=== PATIENT | male | born 1935 | race Caucasian/White ===

== ENCOUNTER 2021-12-05 15:59 | Inpatient (IN) | payer MEDICARE, BC ==
[2021-12-05] MEDS ORDERED: Aspirin 81 mg Enteric Coated Tablet PO SCH (16:15)
[2021-12-05 16:41] LABS: #Basophils 0.1 thou/uL (0.0-0.2); #Eosinphils 0.1 thou/uL (0.0-0.7); #Lymphocytes 1.5 thou/uL (1.20-3.40); #Monocytes 1.5 thou/uL (0.11-0.59); #Neutrophils 8.4 thou/uL (1.40-6.50); %Basophils 0.6 % (0.0-1.0); %Eosinophils 1.1 % (0.0-10.0); %Lymphocytes 12.7 % (21.0-51.0); %Monocytes 12.9 % (0.0-10.0); %Neutrophils 72.8 % (42.0-75.0); Mean Corpuscular HGB CONC 30.9 g/dL (32.0-36.0); Mean Corpuscular Hemoglobin 29.9 pg (27.0-31.0); Mean Corpuscular Volume 96.8 fL (78.0-98.0); Mean Platelet Volume 5.9 fL (7.4-10.4); Platelet Count 277 thou/uL (130-400); RBC Distribution Width 15.5 % (11.5-14.5); Red Blood Cell (RBC) Count 4.35 mill/uL (4.70-6.10); White Blood Cell (WBC) Count 11.5 thou/uL (4.8-10.8)
[2021-12-05 17:02] LABS: Anion Gap 14 mmol/L (10-20); BUN (Urea Nitrogen) 25 mg/dL (8.4-25.7); Calc. Creatinine Clearance 0 mL/min (70-130); Calcium 9.5 mg/dL (7.8-10.44); Carbon Dioxide 24 mmol/L (23-31); Chloride 93 mmol/L (98-107); Glucose 126 mg/dL (83-110); Potassium 4.4 mmol/L (3.5-5.1); Sodium 127 mmol/L (136-145)
[2021-12-05] MEDS: Amlodipine 10 MG TAB PO SCH (20:49)
[2021-12-05] MEDS: Simvastatin 10 MG TAB PO SCH (20:49)
[2021-12-05] MEDS: Fish Oil 1,000 MG CAP PO SCH (20:49)
[2021-12-05] MEDS: HYDROcodone/Acetaminophen 5/325 mg Tablet PO PRN (23:35)
[2021-12-06 04:34] LABS: #Basophils 0.1 thou/uL (0.0-0.2); #Eosinphils 0.1 thou/uL (0.0-0.7); #Lymphocytes 1.6 thou/uL (1.20-3.40); #Monocytes 1.1 thou/uL (0.11-0.59); #Neutrophils 6.5 thou/uL (1.40-6.50); %Basophils 0.5 % (0.0-1.0); %Eosinophils 1.4 % (0.0-10.0); %Lymphocytes 17.2 % (21.0-51.0); %Monocytes 12.1 % (0.0-10.0); %Neutrophils 68.8 % (42.0-75.0); Hemoglobin 12.1 g/dL (14.0-18.0); Mean Corpuscular Hemoglobin 29.8 pg (27.0-31.0); Mean Corpuscular Volume 96.1 fL (78.0-98.0); Platelet Count 285 thou/uL (130-400); RBC Distribution Width 15.5 % (11.5-14.5); Red Blood Cell (RBC) Count 4.07 mill/uL (4.70-6.10); White Blood Cell (WBC) Count 9.4 thou/uL (4.8-10.8)
[2021-12-06 04:52] LABS: Anion Gap 11 mmol/L (10-20); BUN (Urea Nitrogen) 24 mg/dL (8.4-25.7); Calc. Creatinine Clearance 0 mL/min (70-130); Calcium 9.1 mg/dL (7.8-10.44); Carbon Dioxide 28 mmol/L (23-31); Chloride 94 mmol/L (98-107); Glucose 107 mg/dL (83-110); Potassium 4.2 mmol/L (3.5-5.1); Sodium 129 mmol/L (136-145)
[2021-12-06] MEDS: CEFAZOLIN 2 GM in Sodium Chloride 0.9% 100 ML IVPB SCH ×3 (05:26→22:23)
[2021-12-06] MEDS ORDERED: Protamine Sulfate 50 MG/5 ML VIAL ONE (06:33)
[2021-12-06] MEDS ORDERED: Heparin 5,000 UNITS/ML VIAL ONE (06:33)
[2021-12-06] MEDS ORDERED: Bupivacaine PF 0.5% 30 ML VIAL ONE (06:34)
[2021-12-06] MEDS ORDERED: EPINEPHrine 1 MG/ML AMP ONE (06:34)
[2021-12-06] MEDS ORDERED: CEFAZOLIN 1 GM VIAL SLOW IVP SCH (07:00)
[2021-12-06] MEDS ORDERED: CEFAZOLIN 2 GM VIAL ONE (07:10)
[2021-12-06] MEDS ORDERED: Sodium Chloride 0.9% 0 ML ONE (07:11)
[2021-12-06] MEDS ORDERED: fentaNYL Citrate/PF 100 MCG/2 ML SYRINGE ONE (07:28)
[2021-12-06] MEDS ORDERED: Ketamine 50 MG/ML (10ML VIAL) ONE (07:29)
[2021-12-06] MEDS ORDERED: PROPOFOL 200 MG/20 ML VIAL ONE (07:46)
[2021-12-06] MEDS ORDERED: ePHEDrine 50 MG/ML VIAL ONE (07:46)
[2021-12-06] MEDS ORDERED: Rocuronium Bromide 10 MG/ML (10ML VIAL) ONE (07:46)
[2021-12-06] MEDS ORDERED: Glycopyrrolate 0.2 MG/ML 5 ML SYRINGE ONE (07:46)
[2021-12-06] MEDS ORDERED: PHENYLEPHRINE-NS 100 MCG/ML 10 ML SYRINGE ONE (07:46)
[2021-12-06] MEDS ORDERED: Ondansetron PF 4 MG/2 ML Vial ONE (07:46)
[2021-12-06] MEDS ORDERED: Lidocaine 1% PF 5 ML VIAL ONE (07:46)
[2021-12-06] MEDS ORDERED: Aspirin 81 mg Enteric Coated Tablet PO SCH (09:00)
[2021-12-06 09:27] VITALS: BMI 42.2
[2021-12-06 11:46] LABS: SARS-CoV-2 PCR by NAA Not Detected (NotDetected)
[2021-12-06] MEDS ORDERED: Fentanyl 100 MCG/2 ML VIAL ONE (11:56)
[2021-12-06] MEDS: Losartan 25 MG TAB PO SCH (14:31)
[2021-12-06] MEDS: Amiodarone 200 MG TAB PO SCH (14:31)
[2021-12-06] MEDS: Aspirin 325 MG TAB PO SCH (14:32)
[2021-12-06] MEDS: Empagliflozin 10 MG TAB PO SCH (14:32)
[2021-12-06] MEDS: Stress 600 With Zinc 1 TAB PO SCH (14:33)
[2021-12-06] MEDS: HYDROcodone/Acetaminophen 5/325 mg Tablet PO PRN (14:47)
[2021-12-06] MEDS ORDERED: Chloraseptic Spray 180 ml Bottle PO PRN (15:26)
[2021-12-06] MEDS ORDERED: Furosemide 20 MG TAB PO SCH ×2 (15:45→18:00)
[2021-12-06] MEDS ORDERED: Dextrose 50% Abboject 50 ML SYRINGE SLOW IVP PRN (16:14)
[2021-12-06] MEDS ORDERED: Dextrose 5% in Water 1,000 ML IV PRN (16:14)
[2021-12-06] MEDS ORDERED: HumaLOG 300 UNITS/3 ML VIAL SC PRN ×2 (16:14)
[2021-12-06] MEDS ORDERED: Ketorolac Tromethamine 30 MG/ML VIAL IVP SCH (17:21)
[2021-12-06] MEDS ORDERED: Lactated Ringer's 1,000 ML IV SCH (18:00)
[2021-12-06] MEDS: Enoxaparin Sodium 40 MG/0.4 ML SYRINGE SC SCH (20:10)
[2021-12-06] MEDS: Fish Oil 1,000 MG CAP PO SCH (20:12)
[2021-12-06] MEDS: Ferrous Sulfate 325 MG TAB PO SCH (20:12)
[2021-12-06] MEDS: Simvastatin 10 MG TAB PO SCH (20:12)
[2021-12-06] MEDS: Amlodipine 10 MG TAB PO SCH (20:12)
[2021-12-07] MEDS: Ondansetron PF 4 MG/2 ML Vial IVP PRN ×2 (02:03→09:07)
[2021-12-07] MEDS: Calcium Carbonate 500 MG ChewTAB PO PRN ×2 (03:36→23:20)
[2021-12-07 04:48] LABS: #Eosinphils 0.3 thou/uL (0.0-0.7); #Lymphocytes 1.2 thou/uL (1.20-3.40); #Monocytes 0.9 thou/uL (0.11-0.59); #Neutrophils 7.2 thou/uL (1.40-6.50); %Eosinophils 2.9 % (0.0-10.0); %Lymphocytes 12.5 % (21.0-51.0); %Monocytes 9.6 % (0.0-10.0); Mean Corpuscular HGB CONC 30.8 g/dL (32.0-36.0); Mean Corpuscular Hemoglobin 29.7 pg (27.0-31.0); Mean Corpuscular Volume 96.3 fL (78.0-98.0); Mean Platelet Volume 5.9 fL (7.4-10.4); Platelet Count 306 thou/uL (130-400); RBC Distribution Width 15.6 % (11.5-14.5); Red Blood Cell (RBC) Count 4.05 mill/uL (4.70-6.10); White Blood Cell (WBC) Count 9.6 thou/uL (4.8-10.8)
[2021-12-07 05:10] LABS: Anion Gap 12 mmol/L (10-20); BUN (Urea Nitrogen) 24 mg/dL (8.4-25.7); Calc. Creatinine Clearance 90 mL/min (70-130); Calcium 8.8 mg/dL (7.8-10.44); Carbon Dioxide 26 mmol/L (23-31); Chloride 93 mmol/L (98-107); Glucose 108 mg/dL (83-110); Potassium 4.3 mmol/L (3.5-5.1); Sodium 127 mmol/L (136-145)
[2021-12-07] MEDS: CEFAZOLIN 2 GM in Sodium Chloride 0.9% 100 ML IVPB SCH ×3 (05:17→21:23)
[2021-12-07] MEDS: HYDROcodone/Acetaminophen 5/325 mg Tablet PO PRN (06:35)
[2021-12-07] MEDS ORDERED: Milk Of Magnesia 30 ML UDCUP PO PRN (08:07)
[2021-12-07] MEDS: Mag-Al 1200 mg/1200 mg/30 ML UDCUP PO PRN (08:33)
[2021-12-07] MEDS: Polyethylene Glycol 3350 17 GM Packet PO SCH (08:34)
[2021-12-07] MEDS ORDERED: Pantoprazole 40 MG GRANULES PACKET PO SCH (09:00)
[2021-12-07] MEDS ORDERED: Lidocaine 2% Viscous Solution 20 ML, Aluminum & Magnesium Hydroxide 30 ML, Donnatal Eli... SSW SCH (11:00)
[2021-12-07] MEDS ORDERED: Mineral Oil ENEMA PR SCH (11:15)
[2021-12-07] MEDS: Stress 600 With Zinc 1 TAB PO SCH (12:18)
[2021-12-07] MEDS: Empagliflozin 10 MG TAB PO SCH (12:19)
[2021-12-07] MEDS: Amiodarone 200 MG TAB PO SCH (12:20)
[2021-12-07] MEDS: Spironolactone 25 MG TAB PO SCH (12:20)
[2021-12-07] MEDS: Losartan 25 MG TAB PO SCH (12:20)
[2021-12-07] MEDS: Aspirin 325 MG TAB PO SCH (12:20)
[2021-12-07] MEDS: Simvastatin 10 MG TAB PO SCH (20:40)
[2021-12-07] MEDS: Fish Oil 1,000 MG CAP PO SCH (20:40)
[2021-12-07] MEDS: Enoxaparin Sodium 40 MG/0.4 ML SYRINGE SC SCH (20:40)
[2021-12-07] MEDS: Ferrous Sulfate 325 MG TAB PO SCH (20:40)
[2021-12-08 04:29] LABS: #Eosinphils 0.1 thou/uL (0.0-0.7); #Lymphocytes 1.5 thou/uL (1.20-3.40); #Monocytes 1.1 thou/uL (0.11-0.59); #Neutrophils 6.5 thou/uL (1.40-6.50); %Basophils 0.2 % (0.0-1.0); %Eosinophils 1.4 % (0.0-10.0); %Lymphocytes 16.4 % (21.0-51.0); %Monocytes 11.9 % (0.0-10.0); %Neutrophils 70.2 % (42.0-75.0); Hemoglobin 11.1 g/dL (14.0-18.0); Mean Corpuscular HGB CONC 31.6 g/dL (32.0-36.0); Mean Corpuscular Hemoglobin 30.1 pg (27.0-31.0); Mean Corpuscular Volume 95.2 fL (78.0-98.0); Mean Platelet Volume 5.6 fL (7.4-10.4); Platelet Count 312 thou/uL (130-400); RBC Distribution Width 15.7 % (11.5-14.5); Red Blood Cell (RBC) Count 3.67 mill/uL (4.70-6.10); White Blood Cell (WBC) Count 9.3 thou/uL (4.8-10.8)
[2021-12-08 04:56] LABS: Anion Gap 10 mmol/L (10-20); BUN (Urea Nitrogen) 22 mg/dL (8.4-25.7); Calc. Creatinine Clearance 86 mL/min (70-130); Calcium 8.4 mg/dL (7.8-10.44); Carbon Dioxide 28 mmol/L (23-31); Chloride 94 mmol/L (98-107); Glucose 109 mg/dL (83-110); Potassium 4.3 mmol/L (3.5-5.1); Sodium 128 mmol/L (136-145)
[2021-12-08] MEDS: CEFAZOLIN 2 GM in Sodium Chloride 0.9% 100 ML IVPB SCH ×3 (05:50→21:55)
[2021-12-08] MEDS ORDERED: Furosemide 20 MG TAB PO SCH (09:00)
[2021-12-08] MEDS: Polyethylene Glycol 3350 17 GM Packet PO SCH (09:22)
[2021-12-08] MEDS: Losartan 25 MG TAB PO SCH (09:22)
[2021-12-08] MEDS: Aspirin 325 MG TAB PO SCH (09:22)
[2021-12-08] MEDS: Stress 600 With Zinc 1 TAB PO SCH (09:22)
[2021-12-08] MEDS: Amiodarone 200 MG TAB PO SCH (09:22)
[2021-12-08] MEDS: Empagliflozin 10 MG TAB PO SCH (09:23)
[2021-12-08] MEDS: Mag-Al 1200 mg/1200 mg/30 ML UDCUP PO PRN (10:14)
[2021-12-08] MEDS: Ondansetron PF 4 MG/2 ML Vial IVP PRN ×2 (10:14→17:14)
[2021-12-08] MEDS ORDERED: Fleet Enema 133 ML BOT PR SCH (12:00)
[2021-12-08] MEDS: Enoxaparin Sodium 40 MG/0.4 ML SYRINGE SC SCH (21:54)
[2021-12-08] MEDS: Ferrous Sulfate 325 MG TAB PO SCH (21:55)
[2021-12-08] MEDS: Simvastatin 10 MG TAB PO SCH (21:55)
[2021-12-08] MEDS: Fish Oil 1,000 MG CAP PO SCH (21:55)
[2021-12-08] MEDS: HYDROcodone/Acetaminophen 5/325 mg Tablet PO PRN (21:58)
[2021-12-08] MEDS ORDERED: OLANZapine ODT 5 MG TAB ONE (22:16)
[2021-12-09 04:59] LABS: #Eosinphils 0.2 thou/uL (0.0-0.7); #Lymphocytes 1.6 thou/uL (1.20-3.40); #Monocytes 1.1 thou/uL (0.11-0.59); #Neutrophils 5.6 thou/uL (1.40-6.50); %Basophils 0.2 % (0.0-1.0); %Eosinophils 2.8 % (0.0-10.0); %Lymphocytes 18.9 % (21.0-51.0); %Monocytes 12.5 % (0.0-10.0); %Neutrophils 65.6 % (42.0-75.0); Hemoglobin 11.2 g/dL (14.0-18.0); Mean Corpuscular HGB CONC 31.6 g/dL (32.0-36.0); Mean Corpuscular Hemoglobin 30.2 pg (27.0-31.0); Mean Corpuscular Volume 95.5 fL (78.0-98.0); Platelet Count 340 thou/uL (130-400); RBC Distribution Width 15.7 % (11.5-14.5); Red Blood Cell (RBC) Count 3.73 mill/uL (4.70-6.10); White Blood Cell (WBC) Count 8.5 thou/uL (4.8-10.8)
[2021-12-09] MEDS: Mag-Al 1200 mg/1200 mg/30 ML UDCUP PO PRN (05:28)
[2021-12-09] MEDS: CEFAZOLIN 2 GM in Sodium Chloride 0.9% 100 ML IVPB SCH ×3 (05:31→20:17)
[2021-12-09 05:41] LABS: Anion Gap 11 mmol/L (10-20); BUN (Urea Nitrogen) 22 mg/dL (8.4-25.7); Calc. Creatinine Clearance 78 mL/min (70-130); Carbon Dioxide 27 mmol/L (23-31); Chloride 94 mmol/L (98-107); Glucose 99 mg/dL (83-110); Potassium 4.3 mmol/L (3.5-5.1); Sodium 128 mmol/L (136-145)
[2021-12-09] MEDS: Ondansetron PF 4 MG/2 ML Vial IVP PRN (07:32)
[2021-12-09] MEDS: Polyethylene Glycol 3350 17 GM Packet PO SCH ×2 (09:38→21:38)
[2021-12-09] MEDS: Aspirin 325 MG TAB PO SCH (09:45)
[2021-12-09] MEDS: Losartan 25 MG TAB PO SCH (09:45)
[2021-12-09] MEDS: Empagliflozin 10 MG TAB PO SCH (09:45)
[2021-12-09] MEDS: Amiodarone 200 MG TAB PO SCH (09:45)
[2021-12-09] MEDS: Stress 600 With Zinc 1 TAB PO SCH (09:46)
[2021-12-09] MEDS: Spironolactone 25 MG TAB PO SCH (09:47)
[2021-12-09] MEDS: Sodium Chloride 0.9% 1,000 ML IV SCH ×2 (10:18→21:38)
[2021-12-09] MEDS ORDERED: Bicitra 30 ML UDCUP PO SCH (11:00)
[2021-12-09] MEDS: Fish Oil 1,000 MG CAP PO SCH (20:17)
[2021-12-09] MEDS: Simvastatin 10 MG TAB PO SCH (20:17)
[2021-12-09] MEDS: Ferrous Sulfate 325 MG TAB PO SCH (20:17)
[2021-12-09] MEDS: Enoxaparin Sodium 40 MG/0.4 ML SYRINGE SC SCH (20:17)
[2021-12-09] MEDS ORDERED: Fleet Enema 133 ML BOT PR SCH (20:30)
[2021-12-10 04:08] LABS: #Eosinphils 0.1 thou/uL (0.0-0.7); #Lymphocytes 0.7 thou/uL (1.20-3.40); #Monocytes 1.1 thou/uL (0.11-0.59); #Neutrophils 13.6 thou/uL (1.40-6.50); %Basophils 0.1 % (0.0-1.0); %Eosinophils 0.5 % (0.0-10.0); %Lymphocytes 4.4 % (21.0-51.0); %Monocytes 7.3 % (0.0-10.0); %Neutrophils 87.7 % (42.0-75.0); Hemoglobin 11.9 g/dL (14.0-18.0); Mean Corpuscular HGB CONC 31.2 g/dL (32.0-36.0); Mean Corpuscular Volume 96.2 fL (78.0-98.0); Mean Platelet Volume 5.8 fL (7.4-10.4); Platelet Count 355 thou/uL (130-400); RBC Distribution Width 15.8 % (11.5-14.5); Red Blood Cell (RBC) Count 3.95 mill/uL (4.70-6.10); White Blood Cell (WBC) Count 15.5 thou/uL (4.8-10.8)
[2021-12-10 04:34] LABS: Anion Gap 12 mmol/L (10-20); BUN (Urea Nitrogen) 20 mg/dL (8.4-25.7); Calc. Creatinine Clearance 77 mL/min (70-130); Calcium 8.8 mg/dL (7.8-10.44); Carbon Dioxide 26 mmol/L (23-31); Chloride 96 mmol/L (98-107); Glucose 117 mg/dL (83-110); Potassium 4.2 mmol/L (3.5-5.1); Sodium 130 mmol/L (136-145)
[2021-12-10] MEDS: CEFAZOLIN 2 GM in Sodium Chloride 0.9% 100 ML IVPB SCH ×3 (05:18→21:02)
[2021-12-10] MEDS: Acetaminophen 325 MG TAB PO PRN (05:19)
[2021-12-10] MEDS: Amiodarone 200 MG TAB PO SCH (11:05)
[2021-12-10] MEDS: Empagliflozin 10 MG TAB PO SCH (11:06)
[2021-12-10] MEDS: Aspirin 325 MG TAB PO SCH (11:06)
[2021-12-10] MEDS: Losartan 25 MG TAB PO SCH (11:07)
[2021-12-10] MEDS: Polyethylene Glycol 3350 17 GM Packet PO SCH ×2 (11:07→21:12)
[2021-12-10] MEDS: Stress 600 With Zinc 1 TAB PO SCH (11:07)
[2021-12-10] MEDS: Senokot 8.6 MG TAB PO SCH (21:02)
[2021-12-10] MEDS: Ferrous Sulfate 325 MG TAB PO SCH (21:02)
[2021-12-10] MEDS: Enoxaparin Sodium 40 MG/0.4 ML SYRINGE SC SCH (21:02)
[2021-12-10] MEDS: Fish Oil 1,000 MG CAP PO SCH (21:02)
[2021-12-10] MEDS: Simvastatin 10 MG TAB PO SCH (21:03)
[2021-12-10] MEDS: HYDROcodone/Acetaminophen 5/325 mg Tablet PO PRN (21:04)
[2021-12-11 04:08] LABS: #Eosinphils 0.1 thou/uL (0.0-0.7); #Lymphocytes 1.3 thou/uL (1.20-3.40); #Monocytes 1.1 thou/uL (0.11-0.59); #Neutrophils 8.1 thou/uL (1.40-6.50); %Basophils 0.2 % (0.0-1.0); %Eosinophils 1.2 % (0.0-10.0); %Lymphocytes 12.4 % (21.0-51.0); %Monocytes 9.9 % (0.0-10.0); %Neutrophils 76.4 % (42.0-75.0); Hemoglobin 10.4 g/dL (14.0-18.0); Mean Corpuscular HGB CONC 31.7 g/dL (32.0-36.0); Mean Corpuscular Hemoglobin 30.3 pg (27.0-31.0); Mean Corpuscular Volume 95.8 fL (78.0-98.0); Platelet Count 365 thou/uL (130-400); RBC Distribution Width 15.9 % (11.5-14.5); Red Blood Cell (RBC) Count 3.43 mill/uL (4.70-6.10); White Blood Cell (WBC) Count 10.6 thou/uL (4.8-10.8)
[2021-12-11 04:33] LABS: Anion Gap 11 mmol/L (10-20); BUN (Urea Nitrogen) 23 mg/dL (8.4-25.7); Calc. Creatinine Clearance 55 mL/min (70-130); Calcium 8.3 mg/dL (7.8-10.44); Carbon Dioxide 26 mmol/L (23-31); Chloride 95 mmol/L (98-107); Glucose 89 mg/dL (83-110); Potassium 4.3 mmol/L (3.5-5.1); Sodium 128 mmol/L (136-145)
[2021-12-11] MEDS: CEFAZOLIN 2 GM in Sodium Chloride 0.9% 100 ML IVPB SCH ×3 (06:26→21:29)
[2021-12-11] MEDS: Acetaminophen 325 MG TAB PO PRN (06:28)
[2021-12-11] MEDS: Losartan 25 MG TAB PO SCH (09:42)
[2021-12-11] MEDS: Amiodarone 200 MG TAB PO SCH (09:42)
[2021-12-11] MEDS: Aspirin 325 MG TAB PO SCH (09:48)
[2021-12-11] MEDS: Stress 600 With Zinc 1 TAB PO SCH (09:48)
[2021-12-11] MEDS: Polyethylene Glycol 3350 17 GM Packet PO SCH ×2 (09:49→21:30)
[2021-12-11] MEDS: Empagliflozin 10 MG TAB PO SCH (09:56)
[2021-12-11] MEDS: Enoxaparin Sodium 40 MG/0.4 ML SYRINGE SC SCH (21:29)
[2021-12-11] MEDS: Fish Oil 1,000 MG CAP PO SCH (21:30)
[2021-12-11] MEDS: Senokot 8.6 MG TAB PO SCH (21:30)
[2021-12-11] MEDS: Ferrous Sulfate 325 MG TAB PO SCH (21:30)
[2021-12-11] MEDS: HYDROcodone/Acetaminophen 5/325 mg Tablet PO PRN (21:31)
[2021-12-11] MEDS: Simvastatin 10 MG TAB PO SCH (21:43)
[2021-12-12] MEDS: CEFAZOLIN 2 GM in Sodium Chloride 0.9% 100 ML IVPB SCH ×2 (05:21→13:45)
[2021-12-12 06:16] LABS: #Eosinphils 0.1 thou/uL (0.0-0.7); #Monocytes 1.1 thou/uL (0.11-0.59); #Neutrophils 6.3 thou/uL (1.40-6.50); %Basophils 0.2 % (0.0-1.0); %Eosinophils 1.2 % (0.0-10.0); %Lymphocytes 12.3 % (21.0-51.0); %Monocytes 12.4 % (0.0-10.0); Hemoglobin 10.5 g/dL (14.0-18.0); Mean Corpuscular HGB CONC 31.9 g/dL (32.0-36.0); Mean Corpuscular Hemoglobin 29.8 pg (27.0-31.0); Mean Corpuscular Volume 93.4 fL (78.0-98.0); Mean Platelet Volume 5.7 fL (7.4-10.4); Platelet Count 372 thou/uL (130-400); RBC Distribution Width 16.1 % (11.5-14.5); Red Blood Cell (RBC) Count 3.53 mill/uL (4.70-6.10); White Blood Cell (WBC) Count 8.5 thou/uL (4.8-10.8)
[2021-12-12 06:34] LABS: Anion Gap 11 mmol/L (10-20); BUN (Urea Nitrogen) 31 mg/dL (8.4-25.7); Calc. Creatinine Clearance 43 mL/min (70-130); Calcium 8.5 mg/dL (7.8-10.44); Carbon Dioxide 27 mmol/L (23-31); Chloride 96 mmol/L (98-107); Glucose 105 mg/dL (83-110); Potassium 4.5 mmol/L (3.5-5.1); Sodium 129 mmol/L (136-145)
[2021-12-12] MEDS: Polyethylene Glycol 3350 17 GM Packet PO SCH (07:25)
[2021-12-12] MEDS: Empagliflozin 10 MG TAB PO SCH (07:25)
[2021-12-12] MEDS: Amiodarone 200 MG TAB PO SCH (07:26)
[2021-12-12] MEDS: Losartan 25 MG TAB PO SCH (07:34)
[2021-12-12] MEDS: Aspirin 325 MG TAB PO SCH (08:37)
[2021-12-12] MEDS: Stress 600 With Zinc 1 TAB PO SCH (08:39)
[2021-12-12 09:59] VITALS: TEMP 98.6
[2021-12-12 17:08] VITALS: BP 115/71
== END 2021-12-12 17:13 | DRG 253 ==
LOC: 2NO 16:01 → CCU 12-06 08:23 → 2NO 12-06 13:27 → T4-B 12-11 19:47
PROVIDERS: ADMIT Emergency Medicine; ATTEND Hospitalist
PROC: 04CK0ZZ Extirpation of Matter from Right Femoral Artery, Open Approach (ICD-10-PCS; principal; 2021-12-06)
PROC: 04UK0KZ Supplement Right Femoral Artery with Nonautologous Tissue Substitute, Open Approach (ICD-10-PCS; 2021-12-06)
DX: E11.52 Type 2 diabetes mellitus with diabetic peripheral angiopathy with gangrene (principal); I13.0 Hypertensive heart and chronic kidney disease with heart failure and stage 1 through stage 4 chronic kidney disease, or unspecified chronic kidney disease; I50.32 Chronic diastolic (congestive) heart failure; L03.115 Cellulitis of right lower limb; E87.1 Hypo-osmolality and hyponatremia; M86.171 Other acute osteomyelitis, right ankle and foot; I48.20 Chronic atrial fibrillation, unspecified; Z20.822 Contact with and (suspected) exposure to COVID-19; N18.30 Chronic kidney disease, stage 3 unspecified; E11.65 Type 2 diabetes mellitus with hyperglycemia; E11.22 Type 2 diabetes mellitus with diabetic chronic kidney disease; B95.61 Methicillin susceptible Staphylococcus aureus infection as the cause of diseases classified elsewhere; E11.69 Type 2 diabetes mellitus with other specified complication; K80.20 Calculus of gallbladder without cholecystitis without obstruction; K59.00 Constipation, unspecified; Z79.82 Long term (current) use of aspirin; Z79.899 Other long term (current) drug therapy
CPT/HCPCS: 36415; 36416; 74018; 74176; 78227; 80048; 85025; 86850; 86900; 86901; A9537; C1768; J0171; J1644; J1650; J1885; J2405; J2704; J2720; J3010; J3490; J7050; J7120; S0020; U0003; U0005

== ENCOUNTER 2022-01-10 15:58 | Inpatient (IN) | payer MEDICARE, BC ==
[2022-01-10 17:35] LABS: Anion Gap 15 mmol/L (10-20); BUN (Urea Nitrogen) 20 mg/dL (8.4-25.7); Calc. Creatinine Clearance 0 mL/min (70-130); Calcium 8.4 mg/dL (7.8-10.44); Carbon Dioxide 25 mmol/L (23-31); Chloride 98 mmol/L (98-107); Estimated GFR 48; Glucose 116 mg/dL (83-110); Potassium 3.8 mmol/L (3.5-5.1); Sodium 134 mmol/L (136-145)
[2022-01-10 18:03] VITALS: BMI 41.2
[2022-01-10 18:08] LABS: #Eosinphils 0.1 thou/uL (0.0-0.7); #Lymphocytes 0.7 thou/uL (1.20-3.40); #Monocytes 0.6 thou/uL (0.11-0.59); #Neutrophils 4.3 thou/uL (1.40-6.50); %Basophils 0.3 % (0.0-1.0); %Eosinophils 2.1 % (0.0-10.0); %Lymphocytes 12.2 % (21.0-51.0); %Monocytes 10.8 % (0.0-10.0); %Neutrophils 74.7 % (42.0-75.0); Anisocytosis SLIGHT = 6-15 cells (100X) (0-5/hpf); Hemoglobin 9.6 g/dL (14.0-18.0); MDiff Complete? YES; Mean Corpuscular HGB CONC 31.7 g/dL (32.0-36.0); Mean Corpuscular Volume 97.8 fL (78.0-98.0); Mean Platelet Volume 6.7 fL (7.4-10.4); Ovalocytes SLIGHT = 2-5 cells (100X) (0-1/hpf); Platelet Count 114 thou/uL (130-400); Platelet Morphology Comment Appears Decreased; RBC Distribution Width 18.7 % (11.5-14.5); White Blood Cell (WBC) Count 5.8 thou/uL (4.8-10.8)
[2022-01-11] MEDS ORDERED: Dextrose 5% in Water 1,000 ML IV PRN (02:44)
[2022-01-11] MEDS ORDERED: HumaLOG 300 UNITS/3 ML VIAL SC PRN ×2 (02:44)
[2022-01-11] MEDS ORDERED: Dextrose 50% Abboject 50 ML SYRINGE SLOW IVP PRN (02:44)
[2022-01-11] MEDS: Rifampin 300 MG CAP PO SCH (05:11)
[2022-01-11 05:53] LABS: Hemoglobin A1c 5.9 % (4.0-6.0)
[2022-01-11 06:07] LABS: Anion Gap 11 mmol/L (10-20); BUN (Urea Nitrogen) 18 mg/dL (8.4-25.7); Calc. Creatinine Clearance 72 mL/min (70-130); Calcium 8.3 mg/dL (7.8-10.44); Carbon Dioxide 26 mmol/L (23-31); Chloride 101 mmol/L (98-107); Estimated GFR 53; Glucose 98 mg/dL (83-110); Potassium 3.7 mmol/L (3.5-5.1); Sodium 134 mmol/L (136-145)
[2022-01-11 06:13] LABS: SARS-CoV-2 NAA Rapid Test DETECTED (NotDetected)
[2022-01-11] MEDS: Gabapentin 100 MG CAP PO SCH ×3 (08:51→21:14)
[2022-01-11] MEDS: Famotidine 20 MG TAB PO SCH ×2 (08:51→21:15)
[2022-01-11] MEDS: Amiodarone 200 MG TAB PO SCH ×2 (08:52→21:14)
[2022-01-11] MEDS ORDERED: Polyethylene Glycol 3350 17 GM Packet PO PRN (11:49)
[2022-01-11] MEDS ORDERED: Docusate 100 MG CAP PO PRN (11:49)
[2022-01-11] MEDS ORDERED: Bisacodyl 10 MG SUPP PR PRN (11:50)
[2022-01-11] MEDS ORDERED: Docusate 100 MG CAP PO SCH (12:00)
[2022-01-11] MEDS ORDERED: Bisacodyl 10 MG SUPP PR SCH (12:00)
[2022-01-11] MEDS ORDERED: Polyethylene Glycol 3350 17 GM Packet PO SCH (12:00)
[2022-01-11] MEDS ORDERED: Rivaroxaban 2.5 MG TAB PO SCH ×2 (13:00→21:00)
[2022-01-11] MEDS ORDERED: Non-Formulary Item 1 EACH (Ferrous Sulfate [Iron] 325 MG Tablet) PO SCH (21:00)
[2022-01-11] MEDS: Simvastatin 10 MG TAB PO SCH (21:13)
[2022-01-11] MEDS: Amlodipine 10 MG TAB PO SCH (21:13)
[2022-01-11] MEDS: Ferrous Sulfate 325 MG TAB PO SCH (21:14)
[2022-01-12] MEDS: Rifampin 300 MG CAP PO SCH (06:15)
[2022-01-12] MEDS: Gabapentin 100 MG CAP PO SCH ×3 (08:49→20:04)
[2022-01-12] MEDS: Amiodarone 200 MG TAB PO SCH ×2 (08:49→20:05)
[2022-01-12] MEDS: Famotidine 20 MG TAB PO SCH ×2 (08:50→20:04)
[2022-01-12] MEDS: Furosemide 20 MG TAB PO SCH (08:57)
[2022-01-12] MEDS: Simvastatin 10 MG TAB PO SCH (20:04)
[2022-01-12] MEDS: Amlodipine 10 MG TAB PO SCH (20:04)
[2022-01-12] MEDS: Ferrous Sulfate 325 MG TAB PO SCH (20:05)
[2022-01-13] MEDS: Rifampin 300 MG CAP PO SCH (05:55)
[2022-01-13 06:38] LABS: Hemoglobin 8.4 g/dL (14.0-18.0); Mean Corpuscular HGB CONC 32.6 g/dL (32.0-36.0); Mean Corpuscular Hemoglobin 31.5 pg (27.0-31.0); Mean Corpuscular Volume 96.5 fL (78.0-98.0); Mean Platelet Volume 6.5 fL (7.4-10.4); Platelet Count 85 thou/uL (130-400); RBC Distribution Width 18.8 % (11.5-14.5); Red Blood Cell (RBC) Count 2.68 mill/uL (4.70-6.10); White Blood Cell (WBC) Count 3.7 thou/uL (4.8-10.8)
[2022-01-13 06:42] LABS: Anion Gap 13 mmol/L (10-20); BUN (Urea Nitrogen) 19 mg/dL (8.4-25.7); Calc. Creatinine Clearance 72 mL/min (70-130); Calcium 8.3 mg/dL (7.8-10.44); Carbon Dioxide 23 mmol/L (23-31); Chloride 100 mmol/L (98-107); Estimated GFR 53; Glucose 97 mg/dL (83-110); Potassium 3.8 mmol/L (3.5-5.1); Sodium 132 mmol/L (136-145)
[2022-01-13] MEDS: Amiodarone 200 MG TAB PO SCH ×2 (09:19→21:05)
[2022-01-13] MEDS: Gabapentin 100 MG CAP PO SCH ×3 (09:19→21:04)
[2022-01-13] MEDS: Famotidine 20 MG TAB PO SCH ×2 (09:19→21:06)
[2022-01-13] MEDS: Amlodipine 10 MG TAB PO SCH (21:05)
[2022-01-13] MEDS: Simvastatin 10 MG TAB PO SCH (21:06)
[2022-01-13] MEDS: Ferrous Sulfate 325 MG TAB PO SCH (21:06)
[2022-01-14] MEDS: Rifampin 300 MG CAP PO SCH (05:34)
[2022-01-14 05:44] LABS: Hemoglobin 8.9 g/dL (14.0-18.0); Mean Corpuscular HGB CONC 33.2 g/dL (32.0-36.0); Mean Corpuscular Hemoglobin 32.2 pg (27.0-31.0); Mean Corpuscular Volume 96.7 fL (78.0-98.0); Mean Platelet Volume 6.5 fL (7.4-10.4); Platelet Count 84 thou/uL (130-400); RBC Distribution Width 18.7 % (11.5-14.5); Red Blood Cell (RBC) Count 2.76 mill/uL (4.70-6.10); White Blood Cell (WBC) Count 4.3 thou/uL (4.8-10.8)
[2022-01-14 05:59] LABS: Anion Gap 12 mmol/L (10-20); BUN (Urea Nitrogen) 18 mg/dL (8.4-25.7); Calc. Creatinine Clearance 72 mL/min (70-130); Calcium 8.2 mg/dL (7.8-10.44); Carbon Dioxide 26 mmol/L (23-31); Chloride 100 mmol/L (98-107); Estimated GFR 53; Glucose 106 mg/dL (83-110); Potassium 3.9 mmol/L (3.5-5.1); Sodium 134 mmol/L (136-145)
[2022-01-14] MEDS: Furosemide 20 MG TAB PO SCH (08:03)
[2022-01-14] MEDS: Gabapentin 100 MG CAP PO SCH ×3 (08:03→19:55)
[2022-01-14] MEDS: Amiodarone 200 MG TAB PO SCH ×2 (08:04→19:55)
[2022-01-14] MEDS: Famotidine 20 MG TAB PO SCH ×2 (08:04→19:55)
[2022-01-14] MEDS: Ferrous Sulfate 325 MG TAB PO SCH (19:55)
[2022-01-14] MEDS: Amlodipine 10 MG TAB PO SCH (19:55)
[2022-01-14] MEDS: Simvastatin 10 MG TAB PO SCH (19:55)
[2022-01-15] MEDS: Rifampin 300 MG CAP PO SCH (05:45)
[2022-01-15] MEDS: Gabapentin 100 MG CAP PO SCH ×3 (08:35→20:54)
[2022-01-15] MEDS: Amiodarone 200 MG TAB PO SCH ×2 (08:36→20:57)
[2022-01-15] MEDS: Famotidine 20 MG TAB PO SCH ×2 (08:36→20:54)
[2022-01-15] MEDS: Ferrous Sulfate 325 MG TAB PO SCH (20:57)
[2022-01-15] MEDS: Simvastatin 10 MG TAB PO SCH (20:58)
[2022-01-15] MEDS ORDERED: Amlodipine 5 MG TAB PO SCH (21:00)
[2022-01-15] MEDS: Guaifenesin DM 100-10/5 ML UDCUP PO PRN (23:19)
[2022-01-16] MEDS: Rifampin 300 MG CAP PO SCH (06:19)
[2022-01-16 06:43] LABS: Hemoglobin 8.4 g/dL (14.0-18.0); Mean Corpuscular HGB CONC 31.4 g/dL (32.0-36.0); Mean Corpuscular Hemoglobin 30.9 pg (27.0-31.0); Mean Corpuscular Volume 98.3 fL (78.0-98.0); Mean Platelet Volume 6.4 fL (7.4-10.4); Platelet Count 89 thou/uL (130-400); RBC Distribution Width 18.9 % (11.5-14.5); Red Blood Cell (RBC) Count 2.72 mill/uL (4.70-6.10); White Blood Cell (WBC) Count 3.9 thou/uL (4.8-10.8)
[2022-01-16 07:14] LABS: Anion Gap 12 mmol/L (10-20); BUN (Urea Nitrogen) 17 mg/dL (8.4-25.7); Calc. Creatinine Clearance 79 mL/min (70-130); Calcium 8.3 mg/dL (7.8-10.44); Carbon Dioxide 26 mmol/L (23-31); Chloride 98 mmol/L (98-107); Estimated GFR 59; Glucose 106 mg/dL (83-110); Potassium 3.8 mmol/L (3.5-5.1); Sodium 132 mmol/L (136-145)
[2022-01-16] MEDS: Famotidine 20 MG TAB PO SCH ×2 (08:16→19:53)
[2022-01-16] MEDS: Amiodarone 200 MG TAB PO SCH ×2 (08:16→19:53)
[2022-01-16] MEDS: Furosemide 20 MG TAB PO SCH (08:17)
[2022-01-16] MEDS: Gabapentin 100 MG CAP PO SCH ×3 (08:17→19:53)
[2022-01-16] MEDS: Ferrous Sulfate 325 MG TAB PO SCH (19:53)
[2022-01-16] MEDS: Simvastatin 10 MG TAB PO SCH (19:53)
[2022-01-16] MEDS: Guaifenesin DM 100-10/5 ML UDCUP PO PRN (19:54)
[2022-01-17] MEDS: Rifampin 300 MG CAP PO SCH (05:04)
[2022-01-17] MEDS: Famotidine 20 MG TAB PO SCH ×2 (08:37→20:20)
[2022-01-17] MEDS: Gabapentin 100 MG CAP PO SCH ×3 (08:38→20:20)
[2022-01-17] MEDS: Amiodarone 200 MG TAB PO SCH ×2 (08:38→20:20)
[2022-01-17] MEDS: Simvastatin 10 MG TAB PO SCH (20:20)
[2022-01-17] MEDS: Ferrous Sulfate 325 MG TAB PO SCH (20:20)
[2022-01-17] MEDS: Guaifenesin DM 100-10/5 ML UDCUP PO PRN (21:16)
[2022-01-18] MEDS: Rifampin 300 MG CAP PO SCH (05:21)
[2022-01-18] MEDS: Guaifenesin DM 100-10/5 ML UDCUP PO PRN ×2 (08:36→17:00)
[2022-01-18] MEDS: Gabapentin 100 MG CAP PO SCH ×3 (08:37→20:37)
[2022-01-18] MEDS: Famotidine 20 MG TAB PO SCH ×2 (08:37→20:39)
[2022-01-18] MEDS: Amiodarone 200 MG TAB PO SCH ×2 (08:37→20:37)
[2022-01-18] MEDS: Furosemide 20 MG TAB PO SCH (08:38)
[2022-01-18 12:23] LABS: Mean Corpuscular HGB CONC 32.2 g/dL (32.0-36.0); Mean Corpuscular Hemoglobin 31.2 pg (27.0-31.0); Mean Corpuscular Volume 96.9 fL (78.0-98.0); Mean Platelet Volume 6.4 fL (7.4-10.4); Platelet Count 132 thou/uL (130-400); RBC Distribution Width 18.8 % (11.5-14.5); White Blood Cell (WBC) Count 4.4 thou/uL (4.8-10.8)
[2022-01-18 12:42] LABS: Anion Gap 14 mmol/L (10-20); BUN (Urea Nitrogen) 18 mg/dL (8.4-25.7); Calc. Creatinine Clearance 76 mL/min (70-130); Calcium 8.5 mg/dL (7.8-10.44); Carbon Dioxide 26 mmol/L (23-31); Chloride 95 mmol/L (98-107); Estimated GFR 56; Glucose 111 mg/dL (83-110); Magnesium 1.9 mg/dL (1.6-2.6); Sodium 131 mmol/L (136-145)
[2022-01-18 13:55] LABS: Anisocytosis SLIGHT = 6-15 cells (100X) (0-5/hpf); Band 10 % (5-11); Eosinophils 2 % (0-10); Lymphocytes 24 % (21-51); MDiff Complete? YES; Monocytes 12 % (0-10); Myelocyte 1 % (0-0); Neutrophil 46 % (42-75); Ovalocytes SLIGHT = 2-5 cells (100X) (0-1/hpf); Platelet Morphology Comment Appears Adequate; Polychromasia SLIGHT = 2-3 cells (100X) (0-2/hpf); Reactive Lymphocytes 4 % (0-10)
[2022-01-18] MEDS ORDERED: Benzonatate 100 MG CAP PO PRN (18:36)
[2022-01-18] MEDS: Ferrous Sulfate 325 MG TAB PO SCH (20:36)
[2022-01-18] MEDS: Simvastatin 10 MG TAB PO SCH (20:37)
[2022-01-19] MEDS: Rifampin 300 MG CAP PO SCH (05:30)
[2022-01-19 06:32] LABS: Anion Gap 13 mmol/L (10-20); BUN (Urea Nitrogen) 18 mg/dL (8.4-25.7); Calc. Creatinine Clearance 79 mL/min (70-130); Calcium 8.2 mg/dL (7.8-10.44); Carbon Dioxide 26 mmol/L (23-31); Chloride 96 mmol/L (98-107); Estimated GFR 59; Glucose 92 mg/dL (83-110); Hemoglobin 8.4 g/dL (14.0-18.0); Mean Corpuscular HGB CONC 31.5 g/dL (32.0-36.0); Mean Corpuscular Hemoglobin 30.9 pg (27.0-31.0); Mean Corpuscular Volume 98.1 fL (78.0-98.0); Mean Platelet Volume 6.4 fL (7.4-10.4); Platelet Count 135 thou/uL (130-400); RBC Distribution Width 18.8 % (11.5-14.5); Red Blood Cell (RBC) Count 2.71 mill/uL (4.70-6.10); Sodium 131 mmol/L (136-145); White Blood Cell (WBC) Count 4.2 thou/uL (4.8-10.8)
[2022-01-19 06:33] LABS: Anisocytosis SLIGHT = 6-15 cells (100X) (0-5/hpf); Band 7 % (5-11); Elliptocytes SLIGHT = 2-5 cells (100X) (0-1/hpf); Eosinophils 2 % (0-10); Hypochromia SLIGHT = 6-15 cells (100X) (0-5/hpf); Lymphocytes 25 % (21-51); MDiff Complete? YES; Macrocytosis SLIGHT = 6-15 cells (100X) (0-5/hpf); Metamyelocyte 2 % (0-0); Monocytes 13 % (0-10); Neutrophil 49 % (42-75); Ovalocytes SLIGHT = 2-5 cells (100X) (0-1/hpf); Platelet Morphology Comment Appears Adequate; Polychromasia SLIGHT = 2-3 cells (100X) (0-2/hpf)
[2022-01-19] MEDS: Amiodarone 200 MG TAB PO SCH ×2 (08:05→20:29)
[2022-01-19] MEDS: Rivaroxaban 15 MG TAB PO SCH (08:05)
[2022-01-19] MEDS: Gabapentin 100 MG CAP PO SCH ×3 (08:06→20:29)
[2022-01-19] MEDS: Famotidine 20 MG TAB PO SCH ×2 (08:26→20:29)
[2022-01-19] MEDS ORDERED: Furosemide 20 MG/2 ML VIAL SLOW IVP SCH (09:30)
[2022-01-19] MEDS: Ferrous Sulfate 325 MG TAB PO SCH (20:30)
[2022-01-19] MEDS: Simvastatin 10 MG TAB PO SCH (20:30)
[2022-01-20 05:12] LABS: Anion Gap 12 mmol/L (10-20); BUN (Urea Nitrogen) 19 mg/dL (8.4-25.7); Calc. Creatinine Clearance 77 mL/min (70-130); Calcium 8.2 mg/dL (7.8-10.44); Carbon Dioxide 28 mmol/L (23-31); Chloride 96 mmol/L (98-107); Estimated GFR 58; Glucose 94 mg/dL (83-110); Potassium 4.1 mmol/L (3.5-5.1); Sodium 132 mmol/L (136-145)
[2022-01-20] MEDS: Rifampin 300 MG CAP PO SCH (05:28)
[2022-01-20] MEDS: Famotidine 20 MG TAB PO SCH ×2 (08:52→21:14)
[2022-01-20] MEDS: Gabapentin 100 MG CAP PO SCH ×3 (09:14→21:17)
[2022-01-20] MEDS: Amiodarone 200 MG TAB PO SCH ×2 (09:14→21:14)
[2022-01-20] MEDS: Simvastatin 10 MG TAB PO SCH (21:14)
[2022-01-20] MEDS: Ferrous Sulfate 325 MG TAB PO SCH (21:14)
[2022-01-21] MEDS: Rifampin 300 MG CAP PO SCH (05:12)
[2022-01-21] MEDS: Rivaroxaban 15 MG TAB PO SCH (09:02)
[2022-01-21] MEDS: Famotidine 20 MG TAB PO SCH (09:02)
[2022-01-21] MEDS: Gabapentin 100 MG CAP PO SCH ×2 (09:02→15:26)
[2022-01-21] MEDS: Amiodarone 200 MG TAB PO SCH (09:02)
[2022-01-21 16:36] VITALS: BP 117/77; TEMP 98
== END 2022-01-21 16:40 | DRG 920 ==
LOC: SURG A 16:16
PROVIDERS: ADMIT Thoracic Surgery (Cardiothoracic Vascular Surgery); ATTEND Thoracic Surgery (Cardiothoracic Vascular Surgery)
PROC: 0J9C30Z Drainage of Pelvic Region Subcutaneous Tissue and Fascia with Drainage Device, Percutaneous Approach (ICD-10-PCS; principal; 2022-01-10)
DX: T81.31XA Disruption of external operation (surgical) wound, not elsewhere classified, initial encounter (principal); I13.0 Hypertensive heart and chronic kidney disease with heart failure and stage 1 through stage 4 chronic kidney disease, or unspecified chronic kidney disease; I50.32 Chronic diastolic (congestive) heart failure; Z68.41 Body mass index [BMI] 40.0-44.9, adult; M86.8X6 Other osteomyelitis, lower leg; D61.818 Other pancytopenia; E11.52 Type 2 diabetes mellitus with diabetic peripheral angiopathy with gangrene; E78.5 Hyperlipidemia, unspecified; E11.22 Type 2 diabetes mellitus with diabetic chronic kidney disease; I12.9 Hypertensive chronic kidney disease with stage 1 through stage 4 chronic kidney disease, or unspecified chronic kidney disease; E66.9 Obesity, unspecified; N18.30 Chronic kidney disease, stage 3 unspecified; E11.65 Type 2 diabetes mellitus with hyperglycemia; M79.3 Panniculitis, unspecified; H91.90 Unspecified hearing loss, unspecified ear; I48.0 Paroxysmal atrial fibrillation; K21.9 Gastro-esophageal reflux disease without esophagitis; E11.69 Type 2 diabetes mellitus with other specified complication; K59.00 Constipation, unspecified; Z79.01 Long term (current) use of anticoagulants; Z98.890 Other specified postprocedural states; Z79.899 Other long term (current) drug therapy
CPT/HCPCS: 36415; 36416; 71045; 80048; 83036; 83735; 85025; 85027; 97139; J1940; U0002